=== PATIENT | female | born 1945 | race Caucasian/White ===

== ENCOUNTER 2018-03-19 23:41 | Observation (INO) | payer MEDICARE, BC ==
[2018-03-20] MEDS ORDERED: HEPARIN SODIUM,PORCINE 5,000 UNIT/ML 1 ML VIAL IV PRN (01:25)
[2018-03-20] MEDS ORDERED: TEMAZEPAM 7.5 MG CAP PO PRN (01:28)
[2018-03-20] MEDS ORDERED: SODIUM CHLORIDE 0.9% 1,000 ML IV SCH (01:30)
[2018-03-20] MEDS ORDERED: HYDROcodone/APAP 5-325MG 1 EACH TAB PO PRN (01:32)
[2018-03-20] MEDS ORDERED: hydrALAZINE HCL 20 MG/ML 1 ML VIAL IVP PRN (01:34)
[2018-03-20] MEDS ORDERED: Acetaminophen-Codeine 300-30mg TAB PO PRN (01:34)
[2018-03-20] MEDS ORDERED: HEPARIN SODIUM,PORCINE 5,000 UNIT/ML 1 ML VIAL IV ONE (01:45)
[2018-03-20] MEDS ORDERED: HEPARIN SOD,PORK IN 0.45% NACL 25,000 UNIT in 0.45% NACL 1 500ML.BAG IV SCH (02:00)
[2018-03-20] MEDS: MORPHINE SULFATE 2 MG/ML SYRINGE IVP PRN ×2 (02:22→08:55)
[2018-03-20 02:28] LABS: INR 1.2 (<1.2); Partial Thromboplastin Time 34.4 sec (22.0-30.0); Prothrombin Time 11.2 sec (9.0-12.0)
[2018-03-20 02:31] LABS: Creatine Kinase 44 U/L (30-135)
[2018-03-20 02:44] LABS: Creatine Kinase MB 0.5 ng/mL (0.0-2.4); Troponin I <0.012 ng/mL (0.000-0.034)
[2018-03-20] MEDS ORDERED: HYDROcodone/APAP 7.5-325MG 1 EACH TAB PO PRN (03:04)
[2018-03-20] MEDS ORDERED: ALPRAZolam 0.25 MG TAB PO PRN (03:04)
[2018-03-20] MEDS ORDERED: NITROGLYCERIN SL TABS 0.4 MG TAB SUBLINGUAL PRN (03:04)
[2018-03-20] MEDS ORDERED: NITROGLYCERIN OINT 1 INCH/GM PACKET TOPICAL SCH (06:00)
[2018-03-20 07:48] VITALS: PULSE 58; RESP 18; TEMP 97.5
[2018-03-20 08:08] LABS: HGB 13.3 gm/dL (11.4-16.0); MCH 30.3 pg (25.0-35.0); MCHC 32.4 g/dL (31.0-37.0); MCV 93.5 fL (80.0-100.0); Mean Platelet Volume 6.8; Platelet Count 162 k/uL (150-450); RBC 4.38 m/uL (3.80-5.40); WBC 2.1 k/uL (3.8-10.6)
[2018-03-20 08:17] LABS: ALT 57 U/L (9-52); AST 56 U/L (14-36); Albumin 4.1 g/dL (3.5-5.0); Alkaline Phosphatase 94 U/L (38-126); Anion Gap 11 mmol/L; Blood Urea Nitrogen 16 mg/dL (7-17); Calcium 9.1 mg/dL (8.4-10.2); Carbon Dioxide 24 mmol/L (22-30); Chloride 106 mmol/L (98-107); Cholesterol 131 mg/dL (<200); Glucose 109 mg/dL (74-99); HDL Cholesterol 54 mg/dL (40-60); LDL Cholesterol,Calculated 67 mg/dL (0-99); Potassium 4.1 mmol/L (3.5-5.1); Sodium 141 mmol/L (137-145); Total Bilirubin 0.6 mg/dL (0.2-1.3); Total Protein 7.1 g/dL (6.3-8.2); Triglycerides 51 mg/dL (<150)
--- NOTE | 2018-03-20 08:22 | P.CRDCN ---
History of Present Illness Consult date: 03/20/18 History of present illness: This is a 72-year-old female with a history of ischemic heart disease who [place] [facility] [place] several stents and also bypass surgery done recently in 2015. Apparently she had a three-vessel bypass. She claims that she had a cardiac catheterization one year later and was told that her bypass was still patent and working. She was advised medical therapy. Apparently in January of this year. She was seen by Dr. Brown for uncontrolled hypertension. 2 of her medication was increased. Yesterday patient noticed that her blood pressure was getting high and was more than 200 systolic. She started having a feeling of tightness across the chest. She claimed that the pain got up to 7 out of 10. The pain is partially relieved with nitroglycerin. Her EKG showed a sinus rhythm with a right bundle branch block and left axis deviation without any acute changes. At this point because of her given history and ongoing chest pains, patient may need repeat cardiac catheterization. We're in the process of switching Dr. Brown for possible transfer to [facility]. Review of Systems As per the chart Past Medical History Past Medical History: Coronary Artery Disease (CAD), Hyperlipidemia, Hypertension, Myocardial Infarction ([place]) Additional Past Medical History / Comment(s): Pt has hx of CAD, [place]'s x2 and 30 stents stents. She suffered a cardiac arrest with her first [place]. Other HX: anemia due to blood loss with childbirth. Last Myocardial Infarction Date:: 2015 History of Any Multi-Drug Resistant Organisms: None Reported Past Surgical History: Coronary Bypass/CABG, Heart Catheterization, Heart Catheterization With Stent, Hysterectomy, Tonsillectomy Additional Past Surgical History / Comment(s): Numerous STENTS with last one thought to be inserted 10/2015. CABG 05/2016 III vessel, laser surgery bilateral eyes for vision correction. carpel tunnel release Past Anesthesia/Blood Transfusion Reactions: No Reported Reaction Additional Past Anesthesia/Blood Transfusion Reaction / Comment(s): Pt recieved blood after she delivered a child. Date of Last Stent Placement:: 2015 Past Psychological History: Anxiety, Depression Smoking Status: Never smoker Past Alcohol Use History: Occasional Past Drug Use History: None Reported - Past Family History Father Family Medical History: Unable to Obtain Additional Family Medical History / Comment(s): Pt does not know any of her fathers hx. Mother Family Medical History: Congestive Heart Failure (CHF) Additional Family Medical History / Comment(s): Mother at age 89 from CHF Medications and Allergies Home Medications Medication Instructions Recorded Confirmed Type ALPRAZolam [Xanax] 0.25 mg PO ACHS PRN 01/05/15 03/20/18 History Aspirin EC [Ecotrin] 81 mg PO DAILY 01/05/15 03/20/18 History Calcium Carb-Vit D 500Mg-200Un 1 tab PO BID 01/05/15 03/20/18 History [Oscal 500+D] Clopidogrel [Plavix] 75 mg PO DAILY 01/05/15 03/20/18 History Multivit-Min/FA/Lycopene/Lut 1 tab PO DAILY 01/05/15 03/20/18 History [Centrum Silver Tablet] Nitroglycerin Sl Tabs [Nitrostat] 0.4 mg PO ONCE PRN 01/05/15 03/20/18 History Lisinopril [Prinivil] 20 mg PO DAILY 01/06/15 03/20/18 History Atorvastatin [Lipitor] 80 mg PO HS 03/20/18 03/20/18 History Carvedilol [Coreg] 25 mg PO BID 03/20/18 03/20/18 History Cyanocobalamin (Vitamin B-12) 2,000 mcg PO DAILY 03/20/18 03/20/18 History [Vitamin B-12] HYDROcodone/APAP 7.5-325MG [[place] 1 - 2 tab PO Q4H PRN 03/20/18 03/20/18 History 7.5-325] Isosorbide Mononitrate ER [Imdur] 30 mg PO DAILY 03/20/18 03/20/18 History Allergies Allergy/AdvReac Type Severity Reaction Status Date / Time lidocaine Allergy Unknown Verified 03/20/18 08:03 Sulfa (Sulfonamide Allergy Rash/Hives Verified 03/20/18 08:03 Antibiotics) niacin AdvReac Unknown Verified 03/20/18 08:03 Physical Exam Vitals: Vital Signs Temp Pulse Resp BP Pulse Ox 03/20/18 07:15 97.5 F L 58 L 18 155/86 93 L 03/20/18 03:39 97.8 F 59 L 16 157/85 94 L 03/20/18 02:05 16 03/20/18 01:25 97.8 F 63 16 181/88 96 Intake and Output 03/19/18 03/20/18 03/20/18 22:59 06:59 14:59 Other: Voiding Method Toilet # Voids 1 Weight 66.8 kg GENERAL EXAM: Patient is alert and oriented and appears to be in mild distress HEENT: Normocephalic. Normal reaction of pupils, equal size, normal range of extraocular motion. No erythema or exudates in the throat. NECK: No masses, no nuchal rigidity. CHEST: No chest wall deformity. LUNGS: Equal air entry with no crackles or wheeze. HEART: S1 and S2 normal with no audible mumurs or gallops. Regular rhythm, femorals equal on both sides.. ABDOMEN: No hepatosplenomegaly, normal bowel sounds, no guarding or rigidity. SKIN: No rashes CENTRAL NERVOUS SYSTEM: No focal deficits. EXTREMITIES: No cyanosis, clubbing or edema. Results 03/20/18 07:44 Cardiac Enzymes 03/20/18 Range/Units 01:33 CK-MB (CK-2) 0.5 (0.0-2.4) ng/mL Troponin I <0.012 (0.000-0.034) ng/mL Coagulation 03/20/18 Range/Units 01:33 PT 11.2 (9.0-12.0) sec APTT 34.4 H (22.0-30.0) sec CBC 03/20/18 Range/Units 07:44 WBC 2.1 L (3.8-10.6) k/uL RBC 4.38 (3.80-5.40) m/uL Hgb 13.3 (11.4-16.0) gm/dL Hct 41.0 (34.0-46.0) % Plt Count 162 (150-450) k/uL Current Medications Generic Name Dose Route Start Last Admin Trade Name Freq PRN Reason Stop Dose Admin Acetaminophen/Codeine Phosphate 1 each 03/20/18 01:34 Tylenol #3 PO Q6HR PRN Pain Hydrocodone Bitart/Acetaminophen 1 each 03/20/18 03:04 [place] 7.5-325 PO Q4HR PRN Pain Alprazolam 0.25 mg 03/20/18 03:04 Xanax PO ACHS PRN Anxiety Aspirin 325 mg 03/20/18 09:00 Aspirin PO DAILY [facility] Atorvastatin Calcium 80 mg 03/20/18 09:00 Lipitor PO DAILY [facility] Calcium Carbonate 1 each 03/20/18 09:00 Oscal 500+D PO BID [facility] Carvedilol 25 mg 03/20/18 09:00 Coreg PO BID [facility] Clopidogrel Bisulfate 75 mg 03/20/18 09:00 Plavix PO DAILY [facility] Cyanocobalamin 2,000 mcg 03/20/18 12:00 Vitamin B-12 PO DAILY@1200 [facility] Heparin Sodium (Porcine) 0 unit 03/20/18 01:25 Heparin IV PER PROTOCOL PRN Low PTT Protocol Hydralazine HCl 10 mg 03/20/18 01:34 Apresoline IVP Q4HR PRN Blood Pressure - High Heparin Sodium/Sodium Chloride 500 mls @ 16.03 mls/hr 03/20/18 02:00 02:28 25,000 unit/ Sodium Chloride IV 12 units/kg/hr .Q24H JAYSHREE 16.03 mls/hr Administration Protocol 12 UNITS/KG/HR Sodium Chloride 1,000 mls @ 60 mls/hr 03/20/18 01:30 Saline 0.9% IV .[id number] [facility] Isosorbide Mononitrate 30 mg 03/20/18 09:00 Imdur PO DAILY [facility] Lisinopril 20 mg 03/20/18 09:00 Zestril PO DAILY [facility] Morphine Sulfate 4 mg 03/20/18 01:29 03/20/18 02:22 Morphine Sulfate (Inj) IVP 4 mg Q4H PRN Administration Pain/Discomfort Multivitamins 1 each 03/20/18 12:00 Theragran PO DAILY@1200 [facility] Nitroglycerin 0.4 mg 03/20/18 03:04 03/20/18 07:59 Nitrostat SUBLINGUAL 0.4 mg ONCE PRN Administration Chest Pain Temazepam 7.5 mg 03/20/18 01:28 Restoril PO HS PRN Insomnia Intake and Output 03/19/18 03/20/18 03/20/18 22:59 06:59 14:59 Other: Voiding Method Toilet # Voids 1 Weight 66.8 kg 03/20/18 07:44 EKG Interpretations (text) Sinus rhythm with a right bundle branch block and left axis deviation Assessment and Plan (1) CAD (coronary artery disease) Current Visit: Yes Status: Acute Code(s): I25.10 - ATHSCL HEART DISEASE OF [place] CORONARY ARTERY W/O ANG PCTRS SNOMED Code(s): 03945756 (2) Unstable angina pectoris Current Visit: No Status: Acute Code(s): I20.0 - UNSTABLE ANGINA SNOMED Code(s): 6555133 (3) History of coronary artery bypass graft Current Visit: Yes Status: Acute Code(s): Z95.1 - PRESENCE OF AORTOCORONARY BYPASS GRAFT SNOMED Code(s): 937384534 (4) Hypertension Current Visit: Yes Status: Acute Code(s): I10 - ESSENTIAL (PRIMARY) HYPERTENSION SNOMED Code(s): 64805029 Plan: We'll continue current medical therapy. We'll try to reach Dr. Brown and arrange for possible transfer to [facility]. Further recommendations depend upon clinical course. Continue heparin. We'll also obtain an echocardiogram
[2018-03-20 08:24] LABS: Creatine Kinase 42 U/L (30-135)
[2018-03-20 08:38] LABS: Creatine Kinase MB 0.5 ng/mL (0.0-2.4); Troponin I <0.012 ng/mL (0.000-0.034)
[2018-03-20] MEDS ORDERED: ASPIRIN 325 MG TAB PO SCH (09:00)
[2018-03-20] MEDS ORDERED: CLOPIDOGREL 75 MG TAB PO SCH (09:00)
[2018-03-20] MEDS ORDERED: ATORVASTATIN 40 MG TAB PO SCH (09:00)
[2018-03-20] MEDS ORDERED: METOPROLOL TARTRATE 50 MG TAB PO SCH (09:00)
[2018-03-20] MEDS ORDERED: CALCIUM CARB-VIT D 500MG-200UN 1 EACH TAB PO SCH (09:00)
[2018-03-20] MEDS ORDERED: CARVEDILOL 12.5 MG TAB PO SCH (09:00)
[2018-03-20] MEDS ORDERED: ISOSORBIDE MONONITRATE ER 30 MG TAB.ER.24H PO SCH (09:00)
[2018-03-20] MEDS ORDERED: LISINOPRIL 20 MG TAB PO SCH (09:00)
--- NOTE | 2018-03-20 09:47 | ECHOF ---
Referral Reason:Chest pain and cardiomyopathy MEASUREMENTS -------- HEIGHT: 170.2 cm WEIGHT: 66.7 kg BP: IVSd: 1.1 cm (0.6 - 1.1) LVIDd: 4.5 cm (3.9 - 5.3) LVPWd: 1.1 cm (0.6 - 1.1) IVSs: 1.3 cm LVIDs: 3.1 cm LVPWs: 1.6 cm LAESV Index (A-L): 51.09 ml/m Ao Diam: 2.8 cm (2.0 - 3.7) AV Cusp: 1.1 cm (1.5 - 2.6) LA Diam: 4.5 cm (2.7 - 3.8) MV EXCURSION: 11.800 mm (> 18.000) MV EF SLOPE: 44 mm/s (70 - 150) EPSS: 0.7 cm MV E Ananth: 0.79 m/s MV DecT: 226 ms MV A Ananth: 0.65 m/s MV E/A Ratio: 1.21 AV maxP.91 mmHg AV meanP.73 mmHg AR PHT: 315 ms RAP: 5.00 mmHg RVSP: 22.57 mmHg FINDINGS -------- Resting bradycardia (HR<60bpm). This was a technically good study. The left ventricular size is normal. Left ventricular wall thickness is normal. Overall left vent ricular systolic function is low-normal with, an EF between 50 - 55 %. The right ventricle is normal in size and function. LA is severely dilated >40 ml/m2 The right atrium is normal in size. Aortic valve is trileaflet and is mildly thickened. Trace to mild aortic regurgitation. There is mild aortic stenosis present. Peak/mean gradient across the Aortic Valve is 13.91mmHg / 7.73mmHg. The mitral valve leaflets are mildly thickened. Mild mitral annular calcification present. Modera [id number] mitral regurgitation is present. Mild tricuspid regurgitation present. The right ventricular systolic pressure, as measured by Doppl er, is 22.57mmHg. Pulmonic valve appears structurally normal. The aortic root size is normal. Normal inferior vena cava with normal inspiratory collapse consistent with estimated right atrial pre ssure of 5 mmHg. The pericardium is normal. CONCLUSIONS -------- 1. Resting bradycardia (HR<60bpm). 2. This was a technically good study. 3. The left ventricular size is normal. 4. Left ventricular wall thickness is normal. 5. Overall left ventricular systolic function is low-normal with, an EF between 50 - 55 %. 6. The right ventricle is normal in size and function. 7. LA is severely dilated >40 ml/m2 8. The right atrium is normal in size. 9. Aortic valve is trileaflet and is mildly thickened. 10. Trace to mild aortic regurgitation. 11. There is mild aortic stenosis present. 12. Peak/mean gradient across the Aortic Valve is 13.91mmHg / 7.73mmHg. 13. The mitral valve leaflets are mildly thickened. 14. Mild mitral annular calcification present. 15. [id number] mitral regurgitation is present. 16. Mild tricuspid regurgitation present. 17. The right ventricular systolic pressure, as measured by Doppler, is 22.57mmHg. 18. Pulmonic valve appears structurally normal. 19. The aortic root size is normal. 20. Normal inferior vena cava with normal inspiratory collapse consistent with estimated right atrial pressure of 5 mmHg. 21. The pericardium is normal. BAG MACHINE OPERATOR: Kelsey Beckham RDCS
--- NOTE | 2018-03-20 09:50 | P.HPIM ---
History of Present Illness 72-year-old pleasant female came in with compensative chest pain which is constant with the which is pressure-like sensation patient has recent three- vessel bypass in 2016. And patient had a cardiac catheterization posterior CABG with patent grafts. Patient had was having on and off chest pain for last few days. A pressure-like sensation anterior chest without any shortness of breath chest pain at the severe is 7/10 relieved when nitroglycerin partially presently patient's chest pain is 2/10 after morphine. Patient denied any fever chills patient chest pain is not nonpleuritic not associated with food not associated diaphoresis shortness of breath. Cardiac evaluate at the patient patient's troponins are negative EKG did not show any acute ST-T wave changes but did have a right bundle-branch block and left axis deviation. All of which are chronic. Cardiology here evaluated the patient in the recommending transfer [place] [facility] [place] where have piercing artist is. He did discuss the case with her piercing artist. Patient is being transferred to [facility] [place]. Review of Systems REVIEW OF SYSTEMS: CONSTITUTIONAL: No fever, no malaise, no fatigue. HEENT: No recent visual problems or hearing problems. Denied any sore throat. CARDIOVASCULAR: No orthopnea, PND, no palpitations, no syncope. PULMONARY: No shortness of breath, no cough, no hemoptysis. GASTROINTESTINAL: No diarrhea, no nausea, no vomiting, no abdominal pain. Normoactive bowel sounds. NEUROLOGICAL: No headaches, no weakness, no numbness. HEMATOLOGICAL: Denies any bleeding or petechiae. GENITOURINARY: Denies any burning micturition, frequency, or urgency. MUSCULOSKELETAL/RHEUMATOLOGICAL: Denies any joint pain, swelling, or any muscle pain. ENDOCRINE: Denies any polyuria or polydipsia. The rest of the 14-point review of systems is negative. Past Medical History Past Medical History: Coronary Artery Disease (CAD), Hyperlipidemia, Hypertension, Myocardial Infarction ([place]) Additional Past Medical History / Comment(s): Pt has hx of CAD, [place]'s x2 and 30 stents stents. She suffered a cardiac arrest with her first [place]. Other HX: anemia due to blood loss with childbirth. Last Myocardial Infarction Date:: 2015 History of Any Multi-Drug Resistant Organisms: None Reported Past Surgical History: Coronary Bypass/CABG, Heart Catheterization, Heart Catheterization With Stent, Hysterectomy, Tonsillectomy Additional Past Surgical History / Comment(s): Numerous STENTS with last one thought to be inserted 10/2015. CABG 05/2016 III vessel, laser surgery bilateral eyes for vision correction. carpel tunnel release Past Anesthesia/Blood Transfusion Reactions: No Reported Reaction Additional Past Anesthesia/Blood Transfusion Reaction / Comment(s): Pt recieved blood after she delivered a child. Date of Last Stent Placement:: 2015 Past Psychological History: Anxiety, Depression Smoking Status: Never smoker Past Alcohol Use History: Occasional Past Drug Use History: None Reported - Past Family History Father Family Medical History: Unable to Obtain Additional Family Medical History / Comment(s): Pt does not know any of her fathers hx. Mother Family Medical History: Congestive Heart Failure (CHF) Additional Family Medical History / Comment(s): Mother at age 89 from CHF Medications and Allergies Home Medications Medication Instructions Recorded Confirmed Type ALPRAZolam [Xanax] 0.25 mg PO DAILY PRN 01/05/15 03/20/18 History Aspirin EC [Ecotrin] 81 mg PO DAILY 01/05/15 03/20/18 History Calcium Carb-Vit D 500Mg-200Un 1 tab PO BID 01/05/15 03/20/18 History [Oscal 500+D] Clopidogrel [Plavix] 75 mg PO DAILY 01/05/15 03/20/18 History Multivit-Min/FA/Lycopene/Lut 1 tab PO DAILY 01/05/15 03/20/18 History [Centrum Silver Tablet] Nitroglycerin Sl Tabs [Nitrostat] 0.4 mg PO ONCE PRN 01/05/15 03/20/18 History Lisinopril [Prinivil] 20 mg PO DAILY 01/06/15 03/20/18 History Atorvastatin [Lipitor] 80 mg PO HS 03/20/18 03/20/18 History Carvedilol [Coreg] 25 mg PO BID 03/20/18 03/20/18 History Cyanocobalamin (Vitamin B-12) 2,000 mcg PO DAILY 03/20/18 03/20/18 History [Vitamin B-12] HYDROcodone/APAP 7.5-325MG [[place] 1 - 2 tab PO Q4H PRN 03/20/18 03/20/18 History 7.5-325] Isosorbide Mononitrate ER [Imdur] 30 mg PO DAILY 03/20/18 03/20/18 History Allergies Allergy/AdvReac Type Severity Reaction Status Date / Time lidocaine Allergy Unknown Verified 03/20/18 08:03 Sulfa (Sulfonamide Allergy Rash/Hives Verified 03/20/18 08:03 Antibiotics) niacin AdvReac Unknown Verified 03/20/18 08:03 Physical Exam Vitals: Vital Signs Temp Pulse Resp BP Pulse Ox 03/20/18 08:00 18 03/20/18 07:15 97.5 F L 58 L 18 155/86 93 L 03/20/18 03:39 97.8 F 59 L 16 157/85 94 L 03/20/18 02:05 16 03/20/18 01:25 97.8 F 63 16 181/88 96 Intake and Output 03/19/18 03/20/18 03/20/18 22:59 06:59 14:59 Intake Total 102.325 Balance 102.325 Intake: Intake, IV Titration 102.325 Amount Heparin Sod,Pork in 0.45% 102.325 NaCl 25,000 unit In 0.45 % NaCl 1 500ml.bag @ 12 UNITS/KG/HR 16.03 mls/hr IV .Q24H [facility] Rx#: [id number] Other: Voiding Method Toilet Toilet # Voids 1 Weight 66.8 kg PHYSICAL EXAMINATION: GENERAL: The patient is alert and oriented x3, not in any acute distress. Well developed, well nourished. HEENT: Pupils are round and equally reacting to light. EOMI. No scleral icterus. No conjunctival pallor. Normocephalic, atraumatic. No pharyngeal erythema. No thyromegaly. CARDIOVASCULAR: S1 and S2 present. No murmurs, rubs, or gallops. PULMONARY: Chest is clear to auscultation, no wheezing or crackles. ABDOMEN: Soft, nontender, nondistended, normoactive bowel sounds. No palpable organomegaly. MUSCULOSKELETAL: No joint swelling or deformity. EXTREMITIES: No cyanosis, clubbing, or pedal edema. NEUROLOGICAL: Gross neurological examination did not reveal any focal deficits. SKIN: No rashes. Results CBC & Chem 7: 03/20/18 07:44 03/20/18 07:44 Labs: Abnormal Lab Results - Last 24 Hours (Table) 03/20/18 03/20/18 03/20/18 Range/Units 01:33 07:44 07:44 WBC 2.1 L (3.8-10.6) k/uL INR 1.2 H (<1.2) APTT 34.4 H (22.0-30.0) sec Creatinine 0.49 L (0.52-1.04) mg/dL Glucose 109 H (74-99) mg/dL AST 56 H (14-36) U/L ALT 57 H (9-52) U/L 03/20/18 Range/Units 07:44 WBC (3.8-10.6) k/uL INR (<1.2) APTT 102.0 H* (22.0-30.0) sec Creatinine (0.52-1.04) mg/dL Glucose (74-99) mg/dL AST (14-36) U/L ALT (9-52) U/L Thrombosis Risk Factor Assmnt - Choose All That Apply Any of the Below Risk Factors Present?: No Other Risk Factors: Yes Each Risk Factor Represents 2 Points: Age 61-74 years Other congenital or acquired thrombophilia - If yes, enter type in comment: No Thrombosis Risk Factor Assessment Total Risk Factor Score: 2 Thrombosis Risk Factor Assessment Level: Low Risk Assessment and Plan Plan: -Chest pain rule out acute current syndromes patient had to be ruled out for unstable angina patient will need cardiac catheterization further plan as mentioned above -History of coronary artery disease with CABG in the past -Hypertension with fluctuating blood pressures. -Hyperlipidemia Depression. Plan is to transfer to [facility] for further care and possible cardiac catheterization
--- NOTE | 2018-03-20 09:51 | P.DS ---
Providers Date of admission: 03/20/18 01:12 Attending physician: Elida Gibson Consults: 03/20/18 01:24 Consult Physician Routine Consulting Provider: Marvin Blanton Consult Reason/Comments: unstable angina Do you want consulting provider notified?: Yes, Notify in am Primary care physician: Stated None Hospital Course: Please refer to my HPI Plan - Discharge Summary Discharge Rx Participant: No New Discharge Prescriptions: No Action Calcium Carb-Vit D 500Mg-200Un [[place] 500+D] 1 tab PO BID Clopidogrel [Plavix] 75 mg PO DAILY ALPRAZolam [Xanax] 0.25 mg PO DAILY PRN PRN Reason: Anxiety Aspirin EC [Ecotrin] 81 mg PO DAILY Nitroglycerin Sl Tabs [Nitrostat] 0.4 mg PO ONCE PRN PRN Reason: Chest Pain Multivit-Min/FA/Lycopene/Lut [[place] Silver Tablet] 1 tab PO DAILY Lisinopril [Prinivil] 20 mg PO DAILY Carvedilol [Coreg] 25 mg PO BID Cyanocobalamin (Vitamin B-12) [Vitamin B-12] 2,000 mcg PO DAILY Isosorbide Mononitrate ER [Imdur] 30 mg PO DAILY HYDROcodone/APAP 7.5-325MG [[place] 7.5-325] 1 - 2 tab PO Q4H PRN PRN Reason: Pain Atorvastatin [Lipitor] 80 mg PO HS Discharge Medication List ALPRAZolam [Xanax] 0.25 mg PO DAILY PRN 01/05/15 [History] Aspirin EC [Ecotrin] 81 mg PO DAILY 01/05/15 [History] Calcium Carb-Vit D 500Mg-200Un [[place] 500+D] 1 tab PO BID 01/05/15 [History] Clopidogrel [Plavix] 75 mg PO DAILY 01/05/15 [History] Multivit-Min/FA/Lycopene/Lut [Centrum Silver Tablet] 1 tab PO DAILY 01/05/15 [ History] Nitroglycerin Sl Tabs [Nitrostat] 0.4 mg PO ONCE PRN 01/05/15 [History] Lisinopril [Prinivil] 20 mg PO DAILY 01/06/15 [History] Atorvastatin [Lipitor] 80 mg PO HS 03/20/18 [History] Carvedilol [Coreg] 25 mg PO BID 03/20/18 [History] Cyanocobalamin (Vitamin B-12) [Vitamin B-12] 2,000 mcg PO DAILY 03/20/18 [ History] HYDROcodone/APAP 7.5-325MG [[place] 7.5-325] 1 - 2 tab PO Q4H PRN 03/20/18 [ History] Isosorbide Mononitrate ER [Imdur] 30 mg PO DAILY 03/20/18 [History]
[2018-03-20 11:08] VITALS: BP 195/95
[2018-03-20] MEDS ORDERED: MULTIVITAMINS, THERA 1 EACH TAB PO SCH (12:00)
[2018-03-20] MEDS ORDERED: CYANOCOBALAMIN 500 MCG TAB PO SCH (12:00)
== END 2018-03-20 11:22 | disposition other institution (70) ==
LOC: 3OBS 03-20 01:12
PROVIDERS: ADMIT Hospitalist; ATTEND Hospitalist
DX: R07.89 Other chest pain (principal); I25.10 Atherosclerotic heart disease of native coronary artery without angina pectoris; Z95.1 Presence of aortocoronary bypass graft; Z95.5 Presence of coronary angioplasty implant and graft; E78.5 Hyperlipidemia, unspecified; I10 Essential (primary) hypertension; I25.2 Old myocardial infarction; Z86.74 Personal history of sudden cardiac arrest; F41.9 Anxiety disorder, unspecified; F32.9 Major depressive disorder, single episode, unspecified; I45.10 Unspecified right bundle-branch block; Z79.82 Long term (current) use of aspirin; Z79.02 Long term (current) use of antithrombotics/antiplatelets; Z79.899 Other long term (current) drug therapy; Z88.8 Allergy status to other drugs, medicaments and biological substances; Z88.2 Allergy status to sulfonamides
CPT/HCPCS: 96374; 96375; 96376; 93306; 80061; 80053; 82550; 82553; 84484; 85027; 85610; 85730; G0378; G0379; J0360; J1644 ×2; J2270